=== PATIENT | male | born 1995 | race Caucasian/White ===

== ENCOUNTER 2019-05-11 18:58 | Emergency (ER) | payer MEDICAID ==
[~2019-05-11] VITALS: Ht 167.6 cm; Wt 72.6 kg
--- NOTE | 2019-05-11 19:03 | ED.ADGEN ---
Adult General Chief Complaint Chief Complaint ".. I had petted the dog earlier... But when I went to pet him again he bit my hand..." HPI HPI Patient is a 23 year old male who presents with above hx and complaints of dog bite to his right hand. He has contusion and puncture wounds to right hand. Patient does not remember his last tetanus. Patient has distal neurovascular intact. Capillary refill is equal to left hand. Patient is right-hand dominant. No obvious reportedly up-to-date with vaccinations. Patient denies any history immunosuppression. Patient denies any travel. Patient denies any specific ill contacts. 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 Patient thinks dog was startled when he reached out to pet the dog. Review of Systems Review of Systems Constitutional: Denies fever or chills [] Eyes: Denies change in visual acuity, redness, or eye pain [] HENT: Denies nasal congestion or sore throat [] Respiratory: Denies cough or shortness of breath [] Cardiovascular: No additional information not addressed in HPI [] GI: Denies abdominal pain, nausea, vomiting, bloody stools or diarrhea [] : Denies dysuria or hematuria [] Musculoskeletal: Denies back pain or joint pain []complaints of dog bite right hand Integument: Denies rash or skin lesions [] Neurologic: Denies headache, focal weakness or sensory changes [] Endocrine: Denies polyuria or polydipsia [] All other systems were reviewed and found to be within normal limits, except as documented in this note. Family History Family History Noncontributory Current Medications Current Medications Current Medications Medications (Trade) Dose Ordered Sig/Robert Start Time Stop Time Status Last Admin Dose Admin Ceftriaxone Sodium (Rocephin Im) 1 gm 1X ONCE 05/11/19 20:00 05/11/19 20:01 DC 05/11/19 20:10 1 GM Diphtheria/ Tetanus/Acell Pertussis (Boostrix) 0.5 ml ONCE ONCE 05/11/19 20:00 05/11/19 20:01 DC 05/11/19 20:10 0.5 ML Hydrocodone Bitartrate/ Ibuprofen (Vicoprofen 7.5-200) 2 tab 1X ONCE 05/11/19 20:00 05/11/19 20:01 DC 05/11/19 20:09 2 TAB Allergies Allergies Allergies Coded Allergies Type Severity Reaction Last Updated Verified No Known Drug Allergies 05/11/19 No Physical Exam Physical Exam Constitutional: Well developed, well nourished, moderate acute distress, non- toxic appearance. [] HENT: Normocephalic, atraumatic, bilateral external ears normal, oropharynx moist, no oral exudates, nose normal. [] Eyes: PERRLA, EOMI, conjunctiva normal, no discharge. [] Neck: Normal range of motion, no tenderness, supple, no stridor. [] Cardiovascular:Heart rate regular rhythm, no murmur [] Lungs & Thorax: Bilateral breath sounds clear to auscultation [] Abdomen: Bowel sounds normal, soft, no tenderness, no masses, no pulsatile masses. [] Skin: Warm, dry, no erythema, no rash. [] Tattoos. Back: No tenderness, no CVA tenderness. [] Extremities: No tenderness, no cyanosis, no clubbing, ROM intact, no edema. [] Except findings in right hand. Neurologic: Alert and oriented X 3, normal motor function, normal sensory function, no focal deficits noted. [] Psychologic: Affect normal, judgement normal, mood normal. [] Current Patient Data Vital Signs Vital Signs Date Time Temp Pulse Resp B/P (MAP) Pulse Ox O2 Delivery O2 Flow Rate FiO2 05/11/19 19:34 98.2 81 18 100 Room Air EKG EKG [] Radiology/Procedures Radiology/Procedures [][address] [address] IMAGING REPORT Signed PATIENT: FELIBERTO SMALL ACCOUNT: [id number] : 1995 LOCATION: ER AGE: 23 SEX: M EXAM STATUS: DEP ER ORD. PHYSICIAN: BERE POSEY MD REASON: dog bite PROCEDURE: HAND RIGHT 3V HAND RIGHT 3V DATE: 05/11/2019 7:37 PM INDICATION: Dog bite COMPARISON: None. FINDINGS: Bones: There is no evidence of acute fracture or dislocation. Joints: The joint spaces are normal. Miscellaneous: No radiopaque foreign bodies. IMPRESSION: No evidence of acute fracture. Electronically signed by: Bethany Chen MD (05/11/2019 8:52 PM) [facility] DICTATED AND SIGNED BY: BETHANY CHEN MD DATE: 05/11/192051 CC: BERE POSEY MD; PCP,NO ~ Course & Med Decision Making Course & Med Decision Making Pertinent Labs and Imaging studies reviewed. (See chart for details) Hand washed with soap and water extensively. Apply antibiotic ointment. Patient received 1 g of Rocephin. Given a prescription for Augmentin 875 twice a day. Pa tient follow-up primary care. Dog is to be confined for the next couple weeks. Return if any concerns. Rabies shots deferred at this time. [] Final Impression Final Impression 1. Dog Bite[] Dragon Disclaimer Dragon Disclaimer This electronic medical record was generated, in whole or in part, using a voice recognition dictation system. Dragon Disclaimer This chart was dictated in whole or in part using Voice Recognition software in a busy, high-work load, and often noisy Emergency Department environment. It may contain unintended and wholly unrecognized errors or omissions. BERE POSEY MD May 11, 2019 19:03
[2019-05-11 19:34] VITALS: BP 127/72
[2019-05-11] MEDS ORDERED: AMOX1TAB61 PO (19:40)
[2019-05-11] MEDS ORDERED: DIPHTH,PERTUSS(ACELL),TET TOX 0.5 ML DISP.SYRIN. VAX IM ONE (20:00)
[2019-05-11] MEDS ORDERED: cefTRIAXone IM 1 GM VIAL IM ONE (20:00)
[2019-05-11] MEDS ORDERED: HYDROcodon/IBUPROFEN 7.5/200MG 1 TAB TABLET PO ONE (20:00)
--- NOTE | 2019-05-11 20:07 | NUR ---
CALLED [facility] AND REPORTED DOG BITE. PATIENT WILL FOLLOW-UP AND CALL UPON DISCHARGE.
--- NOTE | 2019-05-11 20:55 | RAD ---
HAND RIGHT 3V DATE: 05/11/2019 7:37 PM INDICATION: Dog bite COMPARISON: None. FINDINGS: Bones: There is no evidence of acute fracture or dislocation. Joints: The joint spaces are normal. Miscellaneous: No radiopaque foreign bodies. IMPRESSION: No evidence of acute fracture. Electronically signed by: Ramiro Pedraza MD (05/11/2019 8:52 PM) [id number]
== END 2019-05-11 20:20 | disposition home or self-care (01) ==
LOC: ER 18:58
DX: S61.451A Open bite of right hand, initial encounter (principal); W54.0XXA Bitten by dog, initial encounter; Y93.89 Activity, other specified; Y92.89 Other specified places as the place of occurrence of the external cause; Y99.8 Other external cause status
CPT/HCPCS: 73130; 90471; 90715; 96372; 99284; J0696